=== PATIENT | male | born 1995 | race Two or more races ===

== ENCOUNTER → 2024-12-21 | Outpatient (CLI) | payer SELFPAY ==
[2024-12-27 11:07] LABS: Cotinine Screen Blood <1.0 ng/mL (.)
== END | disposition home or self-care (01) ==
PROVIDERS: Referring Provider Registered Nurse; Visit Provider Registered Nurse
DX: Z00.00 Encounter for general adult medical examination without abnormal findings (principal)
CPT/HCPCS: 80323; G0480